=== PATIENT | male | born 1990 | race Caucasian/White ===

== ENCOUNTER 2018-02-25 18:02 | Emergency (ER) | payer OTHER ==
[~2018-02-25] VITALS: Ht 175.3 cm; Wt 91.9 kg
[2018-02-25 19:10] LABS: HEMATOCRIT 42.7 % (38.0-50.0); HEMOGLOBIN 15.1 G/DL (12.5-16.6); MCH 30.8 PG (29.0-34.0); MCHC 35.4 G/DL (30.0-36.0); MCV 87.1 FL (86-99); PLATELET COUNT 270 K/uL (156-360); RBC DIS.WIDTH-CV 11.1 % (11.8-14.6); RBC DIS.WIDTH-SD 35.6 % (39-53); WHITE BLOOD COUNT 7.6 K/uL (4.1-10.2)
[2018-02-25 19:17] LABS: CHLORIDE 102 mEq/L (99-109); POTASSIUM 4.1 mEq/L (3.7-5.4); SODIUM 138 mEq/L (136-147)
[2018-02-25 19:19] LABS: GLUCOSE 222 mg/dL (70-99)
[2018-02-25 19:23] LABS: CREATININE 0.9 mg/dL (0.6-1.3); GFR ESTIMATE (CALCULATED) > 59 mL/min/ (58.99-99999)
[2018-02-25 19:24] LABS: UREA NITROGEN (BUN) 9 mg/dL (9-23)
[2018-02-25 19:30] LABS: TROP-I INTERPRETATION NEGATIVE; TROPONIN-I < 0.01 ng/mL (0.0-0.30)
[2018-02-25 19:41] VITALS: BP 136/76
== END 2018-02-25 19:42 | disposition home or self-care (01) ==
LOC: EME 18:02
PROVIDERS: Nurse Practitioner Family
DX: T75.4XXA Electrocution, initial encounter (principal); W86.8XXA Exposure to other electric current, initial encounter; Y99.0 Civilian activity done for income or pay
CPT/HCPCS: 80048; 84484; 85027; 93005; 99281; 99284